=== PATIENT | male | born 1960 | race Caucasian/White ===

== ENCOUNTER 2019-03-17 12:17 | Emergency (ER) | payer MEDICARE, OTHER ==
[2019-03-17 12:32] VITALS: O2SAT 99
--- NOTE | 2019-03-17 12:41 | ERPHSYRPT ---
- History of Present Illness Time Seen by Provider: 03/17/19 12:35 Source: patient Exam Limitations: no limitations Patient Subjective Stated Complaint: Pt states "I was working on a screen door and got my hand caught in it." Triage Nursing Assessment: Pt presented through the front and placed in room 6. Pt presnted alert and oriented X 3, skin pwd. Pt ambulates with an upright steady gait, able to speak in clear full sentences. PT has small laceration noted to medial right 4rth digit. bleeding controlled. Physician History: Right hand cought in screen door - small cut little finger. Allergies/Adverse Reactions: amoxicillin trihydrate [From Augmentin] Allergy (Verified 02/03/15 12:31) Cephalosporins Allergy (Verified 02/03/15 12:31) Penicillins Allergy (Verified 02/03/15 12:31) potassium clavulanate [From Augmentin] Allergy (Verified 02/03/15 12:31) Home Medications: Gabapentin 800 mg PO TID 02/03/15 [History] Tizanidine HCl 4 mg [Zanaflex 4 MG] 4 mg PO HS 02/03/15 [History] Tramadol HCl 50 mg [Ultram 50 mg] 50 mg PO QID 02/03/15 [History] Hx Tetanus, Diphtheria Vaccination/Date Given: Yes Hx Influenza Vaccination/Date Given: No Hx Pneumococcal Vaccination/Date Given: No Immunizations Up to Date: Yes - Review of Systems Constitutional: No Symptoms Musculoskeletal: Injury (R little finger - cought in screen door) Skin: Other (Small lac R little finger) - Past Medical History Pertinent Past Medical History: Yes Neurological History: No Pertinent History Cardiac History: No Pertinent History Respiratory History: No Pertinent History Endocrine Medical History: No Pertinent History Musculoskeletal History: Osteoarthritis Other Medical History: past back surgery, OA of B hips - Past Surgical History Past Surgical History: Yes Musculoskeletal: Orthopedic Surgery Other Surgical History: TONSILS - Social History Smoking Status: Former smoker Exposure to second hand smoke: Yes Drug Use: none Patient Lives Alone: No - Nursing Vital Signs Nursing Vital Signs: Initial Vital Signs Temperature 98.6 F 03/17/19 12:28 Pulse Rate 70 03/17/19 12:28 Respiratory Rate 18 03/17/19 12:28 Blood Pressure 158/99 03/17/19 12:28 O2 Sat by Pulse Oximetry 99 03/17/19 12:28 Pain Scale Pain Intensity 0 - Physical Exam SpO2: 99 Procedures - Laceration/Wound Repair Right Finger Wound Location: Right, lower arm (R little finger) Wound Length (cm): 0.75 Wound's Depth, Shape: superficial (Dressing only - no sutures) Wound Explored: clean Irrigated: Yes Hibiclens Prep: Yes Ordered Tests: Active Orders 24 hr Category Date Time Status Wound Care STAT Care 03/17/19 12:41 Active Medication Summary Discontinued Medications Generic Name Dose Route Start Last Admin Trade Name Manan PRN Reason Stop Dose Admin Bacitracin Zinc 0.9 gm 03/17/19 12:42 03/17/19 12:45 Baciguent Packet TP 03/17/19 12:43 0.9 gm STAT ONE Administration Bacitracin Zinc Confirm 03/17/19 12:44 Baciguent Packet Administered 03/17/19 12:45 Dose 1 gm .ROUTE .STK-MED ONE - Progress Progress: improved Progress Note: 03/17/19 13:14 Distal R little finger bandaged; pt ready for discharge - Departure Departure Disposition: Home Clinical Impression: Laceration of finger of right hand Qualifiers: Encounter type: initial encounter Finger: little finger Damage to nail status: without damage Foreign body presence: without foreign body Qualified Code(s): S61.216A - Laceration without foreign body of right little finger without damage to nail, initial encounter Condition: Stable Critical Care Time: No Referrals: CANDIDA OCONNOR [Primary Care Provider] - Additional Instructions: Keep bandage in place 3 days; keep clean and dry. Watch for signs of infection. Follow up as needed with primary care.
[2019-03-17] MEDS ORDERED: BACIGUENT PACKET TP ONE (12:42)
[2019-03-17] MEDS ORDERED: BACIGUENT PACKET ONE (12:44)
[2019-03-17 13:15] VITALS: BP 148/94; PULSE 57
== END 2019-03-17 13:19 | disposition home or self-care (01) ==
LOC: ED 12:17
DX: S61.216A Laceration without foreign body of right little finger without damage to nail, initial encounter (principal); W23.1XXA Caught, crushed, jammed, or pinched between stationary objects, initial encounter
CPT/HCPCS: 99283; A9270-GY

== ENCOUNTER 2020-07-27 15:18 | Day surgery (SDC) | payer MEDICARE ==
[2020-07-27] MEDS ORDERED: Xylocaine 1% Vial 30 ML PF IJ ONE (15:19)
[2020-07-27] MEDS ORDERED: Depo-Medrol 40 MG/ML IM ONE (15:19)
[2020-07-27] MEDS ORDERED: Sodium Chloride 0.9(Preservative Free) 10 ML IJ ONE (15:19)
--- NOTE | 2020-07-27 17:40 | XRAY ---
Indication: Lumbar ROEL. Intraoperative fluoroscopy provided for 17 seconds. 2 digital spot images submitted for interpretation demonstrates midline posterior needle tip projecting just posterior to the lumbosacral interspace. Small amount of contrast injected for needle tip placement. Correlate with intraoperative findings/report.
--- NOTE | 2020-07-27 17:44 | XRAY ---
17 seconds fluoroscopy time in surgery for lumbar ROEL.
== END 2020-07-27 17:36 | disposition home or self-care (01) ==
LOC: SDC-PAIN 15:18
PROVIDERS: ATTEND Psychiatry & Neurology Pain Medicine
DX: M54.16 Radiculopathy, lumbar region (principal); Z79.899 Other long term (current) drug therapy
CPT/HCPCS: 62323; 72100; 77003; J1030; J2001; Q9966